=== PATIENT | female | born 1985 | race Caucasian/White ===

== ENCOUNTER 2019-03-18 00:35 | Observation (INO) ==
[2019-03-18] MEDS ORDERED: 0.9 % Sodium Chloride 1,000 ML ONE (00:42)
[2019-03-18] MEDS ORDERED: 0.9 % Sodium Chloride 1,000 ML IVC ONE (00:57)
[2019-03-18 01:20] LABS: Bilirubin,Urine Negative (Negative); Blood,Urine Negative (Negative); Clarity,Urine Clear (Clear); Color,Urine Yellow (Yellow); Glucose,Urine (UA) Normal (Normal); Ketones,Urine Negative (Negative); Leukocyte Esterase,Urine Negative (Negative); Nitrite,Urine Negative (Negative); PH,Urine 6.5 pH Units (5.0-8.0); Protein,Urine Negative (Neg-Trace); Specific Gravity,Urine 1.008 (1.010-1.025); Urobilinogen,Urine Normal (Normal)
[2019-03-18 01:24] LABS: Basophils # 0.1 K/mcL (0.0-0.2); Basophils % 1.1 %; Eosinophils # 1.6 K/mcL (0.0-0.6); Eosinophils % 12.4 %; Hematocrit 34.9 % (35.3-44.9); Hemoglobin 11.8 g/dL (11.5-15.4); Immature Granulocytes % 0.2 % (0-4); Lymphocytes # 3.9 K/mcL (0.6-4.6); Lymphocytes % 29.9 %; Mean Corpuscular HGB Conc 33.8 g/dL (31.6-35.5); Mean Corpuscular Hemoglobin 30.2 pg (28.0-33.3); Mean Corpuscular Volume 89.3 fL (83.0-100.0); Mean Platelet Volume 9.2 fL (9.4-12.4); Monocytes # 0.8 K/mcL (0.0-1.3); Monocytes % 6.4 %; Neutrophils # 6.4 K/mcL (1.6-8.9); Platelet Count 340 K/mcL (140-400); Red Blood Count 3.91 M/mcL (3.82-4.97); Red Cell Distribution Width 12.3 % (11.5-14.5); White Blood Count 12.9 K/mcL (4.3-11.1)
[2019-03-18 01:31] LABS: Amphetamine Screen,Urine Negative ng/mL (Cutoff=1000); Barbiturate Screen,Urine Positive ng/mL (Cutoff=200); Benzodiazepines Screen,Urine Negative ng/mL (Cutoff=200); Cannabinoid Screen,Urine Negative ng/mL (Cutoff = 50); Cocaine Screen,Urine Negative ng/mL (Cutoff= 300); Opiate Screen,Urine Negative ng/mL (Cutoff=300); Phencyclidine Screen,Urine Negative ng/mL (Cutoff=25)
[2019-03-18 01:32] LABS: INR 0.9; Prothrombin Time 10.5 Seconds (9.4-12.1)
[2019-03-18 01:35] LABS: Activated Partial Thrombo Time 39.5 Seconds (26.0-36.0)
[2019-03-18 01:47] LABS: Alanine Aminotransferase 12 Units/L (7-52); Albumin 4.1 g/dL (3.5-5.7); Albumin/Globulin Ratio 1.4 (1.1-2.2); Alkaline Phosphatase 60 Units/L (34-104); Aspartate Amino Transferase 20 Units/L (13-39); BUN/Creatinine Ratio 8 (6-26); Bilirubin,Indirect 0.2 mg/dL (0.0-1.2); Bilirubin,Total 0.2 mg/dL (0.3-1.0); Blood Urea Nitrogen 7 mg/dL (6-20); Calcium 9.2 mg/dL (8.6-10.3); Carbon Dioxide 20 mEq/L (23-29); Chloride 113 mEq/L (98-107); Creatine Kinase 203 Units/L (30-223); Ethanol < 10 mg/dL (Less than 10); Glucose 95 mg/dL (70-105); Osmolality,Calculated 290 (280-300); Potassium 3.5 mEq/L (3.5-5.1); Sodium 141 mEq/L (136-145); Total Protein 7.1 g/dL (6.4-8.9); Troponin I < 0.03 ng/mL (< 0.04); eGFR For African Americans > 60 (> 60); eGFR For Non-African Americans > 60 (> 60)
[2019-03-18 02:00] LABS: Thyroid Stimulating Hormone 2.209 mcIU/mL (0.340-5.600)
[2019-03-18] MEDS ORDERED: *HR* LORazepam 2 MG/ML VIAL IVP ONE (04:37)
[2019-03-18] MEDS: 0.9 % Sodium Chloride 1,000 ML IVC SCH ×2 (08:05→22:31)
[2019-03-18] MEDS ORDERED: Naloxone 0.4 MG/ML INJ IVP PRN (08:26)
[2019-03-18 10:55] LABS: Glucose,CSF 56 mg/dL (40-70); Total Protein,CSF 55 mg/dL (15-45)
[2019-03-18] MEDS ORDERED: cefTRIAXone 2,000 MG in Water for inj. (sterile) 20 ML IVP SCH ×2 (11:00→12:00)
[2019-03-18] MEDS ORDERED: Acyclovir 600 MG in D5% in Water 250 ML IVPB SCH (13:00)
[2019-03-18 14:19] LABS: Red Blood Cell,CSF < 0.002 M/mcL
[2019-03-18 14:23] LABS: Appearance,CSF Clear (Clear)
[2019-03-18 16:03] LABS: Basophils # 0.1 K/mcL (0.0-0.2); Basophils % 1.3 %; Eosinophils # 0.8 K/mcL (0.0-0.6); Eosinophils % 9.7 %; Hematocrit 34.4 % (35.3-44.9); Hemoglobin 11.3 g/dL (11.5-15.4); Immature Granulocytes % 0.2 % (0-4); Lymphocytes # 2.2 K/mcL (0.6-4.6); Lymphocytes % 25.3 %; Mean Corpuscular HGB Conc 32.8 g/dL (31.6-35.5); Mean Corpuscular Hemoglobin 29.7 pg (28.0-33.3); Mean Corpuscular Volume 90.5 fL (83.0-100.0); Mean Platelet Volume 9.2 fL (9.4-12.4); Monocytes # 0.5 K/mcL (0.0-1.3); Monocytes % 5.2 %; Neutrophils # 5.1 K/mcL (1.6-8.9); Platelet Count 301 K/mcL (140-400); Red Cell Distribution Width 12.2 % (11.5-14.5); Segmented Neutrophils % 58.3 %; White Blood Count 8.7 K/mcL (4.3-11.1)
[2019-03-18] MEDS ORDERED: BUPRENORPHINE HCL SL SCH (21:00)
[2019-03-18] MEDS ORDERED: NALOXONE SL SCH (21:00)
[2019-03-18] MEDS: Gabapentin 400 MG CAPSULE PO SCH (21:44)
[2019-03-18] MEDS ORDERED: Ondansetron 4 MG/2 ML VIAL IVP PRN (23:54)
[2019-03-19 02:02] LABS: Basophils # 0.1 K/mcL (0.0-0.2); Basophils % 1.1 %; Eosinophils # 0.8 K/mcL (0.0-0.6); Eosinophils % 9.8 %; Hematocrit 31.6 % (35.3-44.9); Hemoglobin 10.6 g/dL (11.5-15.4); Immature Granulocytes % 0.2 % (0-4); Lymphocytes # 2.9 K/mcL (0.6-4.6); Lymphocytes % 34.5 %; Mean Corpuscular HGB Conc 33.5 g/dL (31.6-35.5); Mean Corpuscular Hemoglobin 30.5 pg (28.0-33.3); Mean Corpuscular Volume 91.1 fL (83.0-100.0); Mean Platelet Volume 9.2 fL (9.4-12.4); Monocytes # 0.6 K/mcL (0.0-1.3); Monocytes % 6.7 %; Neutrophils # 4.1 K/mcL (1.6-8.9); Platelet Count 247 K/mcL (140-400); Red Blood Count 3.47 M/mcL (3.82-4.97); Red Cell Distribution Width 12.3 % (11.5-14.5); Segmented Neutrophils % 47.7 %; White Blood Count 8.5 K/mcL (4.3-11.1)
[2019-03-19 02:19] LABS: Alanine Aminotransferase 10 Units/L (7-52); Albumin 3.5 g/dL (3.5-5.7); Albumin/Globulin Ratio 1.3 (1.1-2.2); Alkaline Phosphatase 49 Units/L (34-104); Aspartate Amino Transferase 13 Units/L (13-39); BUN/Creatinine Ratio 11 (6-26); Bilirubin,Total 0.3 mg/dL (0.3-1.0); Blood Urea Nitrogen 7 mg/dL (6-20); Calcium 8.2 mg/dL (8.6-10.3); Carbon Dioxide 20 mEq/L (23-29); Chloride 113 mEq/L (98-107); Globulin 2.6 g/dL (2.4-3.5); Glucose 87 mg/dL (70-105); Magnesium 1.8 mg/dL (1.6-2.6); Osmolality,Calculated 285 (280-300); Potassium 3.3 mEq/L (3.5-5.1); Sodium 139 mEq/L (136-145); Total Protein 6.1 g/dL (6.4-8.9); eGFR For African Americans > 60 (> 60); eGFR For Non-African Americans > 60 (> 60)
[2019-03-19] MEDS: 0.9 % Sodium Chloride 1,000 ML IVC SCH (07:00)
[2019-03-19] MEDS ORDERED: Potassium Chloride 20 MEQ, Lidocaine 1% 2 ML in 0.9 % Sodium Chloride 250 ML IVPB ONE (08:45)
[2019-03-19] MEDS: Gabapentin 400 MG CAPSULE PO SCH (08:59)
[2019-03-19] MEDS ORDERED: Buprenorphine Hcl/Naloxone Hcl [Suboxone 8 Mg-2 Mg S SL SCH (09:00)
[2019-03-19] MEDS ORDERED: NALOXONE SL SCH (09:00)
[2019-03-19] MEDS ORDERED: BUPRENORPHINE HCL SL SCH (09:00)
[2019-03-19] MEDS ORDERED: Acetaminophen 325 MG TABLET PO ONE (10:49)
[2019-03-19 11:38] VITALS: BP 105/67
[2019-03-19] MEDS ORDERED: Aminoglycoside Consult 1 EACH MC ONE (15:34)
[2019-03-20 09:57] LABS: Borrelia burgdorferi Abs CSF 0.08 LIV (<=0.99)
[2019-03-21 08:18] LABS: Serine Protease-3 Antibody 1 AU/mL (0-19)
[2019-03-21 08:31] LABS: HSV Source CSF
[2019-03-21 08:32] LABS: ANA IgG by ELISA NONE DETECTED (None Detected)
[2019-03-22 16:47] LABS: West Nile Virus PCR Source CSF
== END 2019-03-19 15:35 | disposition home or self-care (01) ==
LOC: 3BNU 00:35 → EMEROOARM 00:35 → SUATTDRO 06:12 → 3BNU 06:36
PROVIDERS: ADMIT Internal Medicine; ATTEND Internal Medicine